=== PATIENT | male | born 1960 | race American Indian/Alaskan Native ===

== ENCOUNTER 2018-08-25 18:13 | Inpatient (IN) | payer OTHER ==
--- NOTE | 2018-08-25 18:59 | C.PDOC ---
History Of Present Illness 57 year old male presents to ED requesting heroin detox. Patient states that his last use was 3 hours ago today. Patient has no other physical complaints and denies alcohol abuse. Patient denies suicidal and homicidal ideation. Chief Complaint (Nursing): Substance Abuse History Per: Patient History/Exam Limitations: no limitations Onset/Duration Of Symptoms: Other (requesting detox) Suicide/Self Injury Attempted (Context): None Modifying Factor(s): Other (heroin) Associated Symptoms: denies: Suicidal Thoughts, Suicidal Plan Past Medical History Reviewed: Historical Data, Nursing Documentation, Vital Signs Vital Signs: Last Vital Signs Temp 99.5 F 08/25/18 18:25 Pulse 92 H 08/25/18 18:25 Resp 18 08/25/18 18:25 BP 144/84 08/25/18 18:25 Pulse Ox 98 08/25/18 18:25 - Medical History PMH: Rheumatoid Arthritis Surgical History: No Surg Hx Family History: States: Unknown Family Hx - Social History Hx Alcohol Use: No Hx Substance Use: Yes - Immunization History Hx Tetanus Toxoid Vaccination: No Hx Influenza Vaccination: No Hx Pneumococcal Vaccination: No Review Of Systems Constitutional: Negative for: Fever, Chills, Weakness Cardiovascular: Negative for: Chest Pain Respiratory: Negative for: Cough, Shortness of Breath Gastrointestinal: Negative for: Nausea, Vomiting, Abdominal Pain, Diarrhea Skin: Negative for: Rash Neurological: Negative for: Weakness, Numbness, Headache, Dizziness Psych: Negative for: Suicidal ideation, Other (homicidal ideation) Physical Exam - Physical Exam Appears: Well, Non-toxic, No Acute Distress Skin: Normal Color, Warm, Dry Head: Atraumatic, Normacephalic Neck: Normal ROM, Supple Chest: Symmetrical, No Deformity Cardiovascular: Rhythm Regular, No Murmur Respiratory: No Accessory Muscle Use, No Rales, No Rhonchi, No Wheezing Gastrointestinal/Abdominal: Soft, No Tenderness Extremity: Capillary Refill (<2 seconds) Neurological/Psych: Oriented x3, Normal Speech, Normal Cognition ED Course And Treatment - Laboratory Results Result Diagrams: 08/25/18 19:39 08/25/18 19:39 O2 Sat by Pulse Oximetry: 98 (in RA) Progress Note: Labs ordered with drug screen and UA for patient. 2028:Patient medically cleared. Patient to be placed in detox observation under . Disposition Discussed With : Isis Hernandez Doctor Will See Patient In The: Hospital Counseled Patient/Family Regarding: Diagnosis - Disposition Disposition: HOSPITALIZED Disposition Time: 20:31 Condition: STABLE Forms: [facility] (Lithuanian) - POA Present On Arrival: None - Clinical Impression Clinical Impression: Drug abuse - Scribe Statement The provider has reviewed the documentation as recorded by the Scribe (Ibis Leigh) All medical record entries made by the Scribe were at my direction and personally dictated by me. I have reviewed the chart and agree that the record accurately reflects my personal performance of the history, physical exam, medical decision making, and the department course for this patient. I have also personally directed, reviewed, and agree with the discharge instructions and disposition.
[2018-08-25 19:43] LABS: BASO # 0.1 K/uL (0.0-0.2); BASO % 1.1 % (0.0-2.0); EOS # 0.1 K/uL (0.0-0.7); EOS % 0.7 % (0.0-4.0); LYMPH # 1.6 K/uL (1.0-4.3); LYMPH % 16.3 % (20.0-40.0); MEAN CELL VOLUME 91.1 fL (80.0-94.0); MEAN CORPUSCULAR HGB CONC 32.9 g/dL (33.0-37.0); MEAN PLATELET VOLUME 7.6 fL (7.2-11.7); MONO # 0.7 K/uL (0.0-0.8); MONO % 6.8 % (0.0-10.0); NEUT # 7.4 K/uL (1.8-7.0); NEUT % 75.1 % (50.0-75.0); RBC 4.34 Mil/uL (4.40-5.90); RED CELL DISTRIBUTION WIDTH 17.1 % (11.5-14.5); WHITE BLOOD COUNT 9.9 K/uL (4.8-10.8)
[2018-08-25 19:56] LABS: SQUAMOUS EPITHIAL < 1 /hpf (0-5); URINE BILIRUBIN NEGATIVE (NEGATIVE); URINE BLOOD NEGATIVE (NEGATIVE); URINE CLARITY Hazy (Clear); URINE COLOR Yellow (YELLOW); URINE GLUCOSE (UA) NORMAL (Normal); URINE LEUKOCYTE ESTERASE NEG Leu/uL (Negative); URINE PROTEIN NEGATIVE (NEGATIVE); URINE UROBILINOGEN NORMAL mg/dL (0.2-1.0)
[2018-08-25 19:59] LABS: ALB/GLOB RATIO 1.2 (1.0-2.1); ALT/SGPT 9 U/L (21-72); AST/SGOT 19 U/L (17-59); BLOOD UREA NITROGEN 4 mg/dL (9-20); CALCIUM 9.7 mg/dl (8.6-10.4); GFR NON-AFRICAN AMERICAN > 60
[2018-08-25 20:01] LABS: BARBITURATES, UR NEGATIVE (NEGATIVE); BENZODIAZEPINES, UR NEGATIVE (NEGATIVE); PHENCYCLIDINE, UR NEGATIVE (NEGATIVE)
[2018-08-25 20:06] LABS: OPIATES, UR POSITIVE (NEGATIVE)
--- NOTE | 2018-08-25 20:56 | PCM.BM ---
<NaJanell M - Last Filed: 08/25/18 20:55> Treatment Plan Problems - Problems identified on initial assessmt Hopelessness Date Initiated: 08/25/18 Time Initiated: 20:55 Assessment reference: NA Status: Active Treatment assets and liabiliti Patient Assests: ADL independent Patient Liabilities: substance abuse - Milieu Protocol Maintain good personal hygiene: daily Encourage regular showers, daily Remind patient to perform daily oral care, daily Assist patient to perform ADL's Conduct patient checks and document Observation sheet: Q15 minutes Maintain personal safety: every shift Educate patient to report safety concerns to staff, every shift Monitor environment for contraband/sharps Medication safety: Monitor for expected outcome, potential side effects: every shift, Assess barriers to learning: every shift, Assess readiness for medication education: every shift <Marisol Diaz - Last Filed: 08/27/18 16:08> Family Contact Family involvement: No known Family/SO - Goals for Treatment Patient goals for treatment: Complete detox and relocate to [place]. Discharge/Continuing Care - Education Needs Education Needs: Patient Medication, Patient Diagnosis/Disease Process, Patient Coping Skills, Patient Anger Management skills, Patient Placement options, Patient Community resources - Discharge Discharge Criteria: No longer exhibiting s/s of withdrawal, Reduction of target symptoms Discharge to:: With Family - Treatment Team Participation Patient/Family/SO Statement: 08/27/18 16:07 "When I get outta here, I'm moving to [place] to be with my family. I already have a plane ticket." Discussed with Family/SO: No Was Patient/Family/SO present at Treatment Team Meeting: Yes
[2018-08-26] MEDS ORDERED: Buprenorphine Hydrochloride 2 mg SL ONE ×2 (02:38→03:38)
--- NOTE | 2018-08-26 12:07 | CP.PCM.PCO ---
Physician Communication Note - Physician Communication Note Physician Communication Note: See above
--- NOTE | 2018-08-26 12:45 | PCM.PSYCH ---
Initial Psychiatric Evaluation - Initial Psychiatric Evaluation Type of Admission: Voluntary Legal Status: Capacity Chief Complaint (in patient's own words): "I'm sick" History of Present Illness and Precipitating Events: The patient started to withdraw and thus switched from observation status to inpatient status He is seen, chart reviewed and case discussed He is a poor historian due to feeling irate He is a 57 y/o AAM, , has 2 children, homeless but stays with niece at times, on disability He is here for opioid detox - using 8 bags intranasally. He has used for 40 years. He relapsed 2 months ago after 12 years clean. He says he came here from [place] about 3 years ago bc his family told him to leave them, and that's why he relapsed (?) He has had 5 detoxes and 2 rehabs. He was on low dose, 18 mg methadone one time but he stopped. He had ODs within 6 months (heroin and fentanyl) Uses MJ, cigarettes, takes ultram but prescribed. He reports depression and recent thoughts of dying. He has attempted suicide in the s. He is also anxious, very irate, garcia, pessimistic. Wants to go back to [place] after detox Medical; He has RA and severe pain, which heroin helped. No family psych hx Current Medications: Active Medications Generic Name Dose Route Start Last Admin Trade Name Freq PRN Reason Stop Dose Admin Clonidine HCl 0.1 mg 08/26/18 02:11 Catapres PO Q6 PRN s/sx of withdrawal cows=5 Clonidine HCl 0.1 mg 08/26/18 14:00 Catapres PO TID [place] Gabapentin 100 mg 08/26/18 14:00 Neurontin PO TID [place] Hydroxyzine HCl 25 mg 08/26/18 02:11 Atarax PO Q6 PRN Anxiety Ibuprofen 600 mg 08/26/18 02:12 08/26/18 12:13 Motrin Tab PO 600 mg Q6 PRN Administration Pain, moderate (4-7) Mirtazapine 15 mg 08/26/18 22:00 Remeron PO HS [place] Nicotine 1 patch 08/26/18 10:45 08/26/18 10:59 Nicoderm Cq TD 1 patch DAILY [place] Administration Pneumococcal Polyvalent Vaccine 0.5 ml 08/28/18 10:00 Pneumovax 23 Vaccine IM 08/28/18 10:01 .ONCE ONE Past Psychiatric History - Past Psychiatric History Previous Treatment History: Intensive Outpatient Pertinent Medical Hx (Current Medical&Sleep Prob, Allergies): Allergies Allergy/AdvReac Type Severity Reaction Status Date / Time No Known Allergies Allergy Unverified 08/25/18 18:28 Review of Systems - Psychiatric Psychiatric: Abnormal Sleep Pattern, Anhedonia, Anxiety, Change in Appetite, Depression, Difficulty Concentrating, Irritability, Mood Swings, Suicidal Ideation (no plan or urge). absent: Homicidal Ideation Mental Status Examination - Personal Presentation Personal Presentation: Looks older than stated age - Affect Affect: Constricted, Other (irate) - Motor Activity Motor Activity: Other (fidgety) - Reliability in Providing Information Reliability in Providing Information: Fair - Speech Speech: Organized - Mood Mood: Depressed, Anxious - Formal Thought Process Formal Thought Process: No Impairment - Cognitive Functions Orientation: Person, Place, Situation, Time Sensorium: Alert Attention/Concentration: Attentive Estimate of Intelligence: Average Memory: Recent intact, as evidence by: Ability to recall events of the day, Remote intact, as evidenced by: Ability to recall historical events - Risk Risk: Withdrawal, Diminished functioning - Strength & Assets Inventory Strength & Assets Inventory: Life experience - Limitations Limitations: Other DSM 5 DX - DSM 5 DSM 5 Diagnosis: Opioid withdrawal Opioid use d/o - severe Cannabis use d/o - severe Tobacco use d/o - severe Depressive d/o - unspecified Personality d/o - unspecified - Recommended/Plan of Treatment Treatment Recommendations and Plan of Treatment: Taper with subutex Remeron for depression Gabapentin for augmentation As needed medications All risks, benefits and alternatives of the meds discussed, and the pt agreed and understood. Attend groups and activities Supportive therapy and psychoeducation [place] for abstinence CBT for relapse prevention Encourage MAT Refer to rehab or IOP, and self-help groups Teach healthy lifestyle methods, i.e. diet, exercise, meditation Smoking cessation with [place] Nicotine patch if needed 34 min Projected ELOS: 4-5 days Prognosis: good - Smoking Cessation Smoking Cessation Initiated: Yes
--- NOTE | 2018-08-27 10:02 | PCM.PYCHPN ---
Psychiatric Progress Note - Psychiatric Progress Note Patient seen today, length of contact: 16 min Patient Chief Complaint: "Better now" Problems Identified/Issues Discussed: The pt is seen, chart reviewed, case is discussed with staff. The pt is compliant with medications and reports no side-effects. Symptoms are improving but needs more time to stabilize and to avoid relapse. Much calmer today Pt attends groups and activities. Support given, psycho-education provided. After care discussed. Still wants to go out of state but more lenient now Medication Change: Yes (detox changes daily) Medical Record Reviewed: Yes Mental Status Examination - Cognitive Function Orientation: Person, Place, Situation, Time Memory: Intact Attention: WNL Concentration: WNL Association: WNL Fund of Knowledge: WNL - Mood Mood: Depressed, Anxious - Affect Affect: Constricted - Speech Speech: Appropriate - Formal Thought Process Formal Thought Process: No Impairment - Suicidal Ideation Suicidal Ideation: No - Homicidal Ideation Homicidal Ideation: No Goal/Treatment Plan - Goal/Treatment Plan Need for Continued Stay: Discharge may exacerbated symptoms, Severe functional impairment Progress Toward Problem(s) and Goals/Treatment Plan: Taper withsubutex Remeron for depression Gabapentin for augmentation As needed medications All risks, benefits and alternatives of the meds discussed, and the pt agreed and understood. Attend groups and activities Supportive therapy and psychoeducation [place] for abstinence CBT for relapse prevention Encourage MAT Refer to rehab or IOP, and self-help groups Teach healthy lifestyle methods, i.e. diet, exercise, meditation Smoking cessation with [place] Nicotine patch if needed
[2018-08-27] MEDS: Buprenorphine Hydrochloride 2 mg SL SCH (10:19)
[2018-08-27] MEDS ORDERED: Buprenorphine Hydrochloride 8 mg SL ONE (18:00)
[2018-08-28] MEDS ORDERED: Pneumococcal 23-Valent Vaccine IM ONE (10:00)
[2018-08-28] MEDS: Buprenorphine Hydrochloride 2 mg SL SCH (10:08)
--- NOTE | 2018-08-28 23:09 | PCM.PYCHPN ---
Psychiatric Progress Note - Psychiatric Progress Note Patient seen today, length of contact: 15 minutes Patient Chief Complaint: I am feeling better with the treatment. Problems Identified/Issues Discussed: Patient seen, chart reviewed, case discussed with the staff. Issues related to illness and treatment were discussed with the patient and staff. Reported compliant with treatment with no adverse effects. Tolerating treatment very well. Patient reported feeling better. Patient still has some mild withdrawal symptoms. Mood reported as anxious. Affect appropriate. Aftercare discussed with the patient. Patient denied any delusions, auditory or visual hallucinations, no suicidal ideations or homicidal ideations at the time of evaluation. Medical Problems: Rheumatoid arthritis Diagnostic Results: Reviewed DSM 5 Symptoms Update: Some improvement with treatment. Medication Change: No Medical Record Reviewed: Yes Mental Status Examination - Cognitive Function Orientation: Person, Place, Situation, Time Memory: Intact Attention: WNL Concentration: WNL Association: WN Fund of Knowledge: [facility] Decription of patient's judgement and insights: Fair - Mood Mood: Anxious - Affect Affect: Other (Appropriate) - Speech Speech: Appropriate - Formal Thought Process Formal Thought Process: No Impairment Psychotic Thoughts and Behaviors: None - Suicidal Ideation Suicidal Ideation: No - Homicidal Ideation Homicidal Ideation: No Goal/Treatment Plan - Goal/Treatment Plan Need for Continued Stay: Remain at risks for inpatient hospitalization, Discharge may exacerbated symptoms, Severe functional impairment Progress Toward Problem(s) and Goals/Treatment Plan: Patient education. Supportive therapy. CBT for relapse prevention. [facility] for abstinence. Continue treatment as before. Patient wants to go to home and no follow-up care after discharge from the hospital. Estimated Date of D/C: 08/29/18 - Smoking Cessation Smoking Cessation Initiated: Yes
[2018-08-29 05:50] VITALS: RESP 20
[2018-08-29] MEDS: Buprenorphine Hydrochloride 2 mg SL SCH (09:07)
[2018-08-29 09:30] VITALS: BP 127/81; PULSE 86; TEMP 98.2; O2SAT 100
--- NOTE | 2018-08-29 20:21 | PCM.PYCHDC ---
Mental Status Examination - Mental Status Examination Orientation: Person, Place, Situation, Time Memory: Intact Mood: Neutral Affect: Other (Appropriate) Speech: Appropriate Attention: WNL Concentration: WNL Association: WNL Fund of Knowledge: WNL Formal Thought Process: No Impairment Description of patient's judgement and insight: Fair Psychotic Thoughts and Behaviors: None Suicidal Ideation: No Current Homicidal Ideation?: No Discharge Summary - Discharge Note Reason for Hospitalization: Opioid withdrawal Opioid use d/o - severe Cannabis use d/o - severe Tobacco use d/o - severe Depressive d/o - unspecified Personality d/o - unspecified Laboratory Data: Reviewed Consultations:: List each consultation separately and include: 1. Reason for request. 2. Findings. 3. Follow-up Summary of Hospital Course include:: 1. Description of specific treatment plan utilized for patients during their course of treatmen. 2. Summarize the time- course for resolution of acute symptoms and/or regressed behaviors. 3. Describe issues identified and worked on during hospitalization. 4. Describe medication utilized. 5. Describe medical problems identified and treated. 6. Reassessment of suicide risk Summary of Hospital Course: he patient started to withdraw and thus switched from observation status to inpatient status He is seen, chart reviewed and case discussed He is a poor historian due to feeling irate He is a 57 y/o AAM, , has 2 children, homeless but stays with niece at times, on disability He is here for opioid detox - using 8 bags intranasally. He has used for 40 years. He relapsed 2 months ago after 12 years clean. He says he came here from [place] about 3 years ago bc his family told him to leave them, and that's why he relapsed (?) He has had 5 detoxes and 2 rehabs. He was on low dose, 18 mg methadone one time but he stopped. He had ODs within 6 months (heroin and fentanyl) Uses MJ, cigarettes, takes ultram but prescribed. He reports depression and recent thoughts of dying. He has attempted suicide in the 90's. He is also anxious, very irate, garcia, pessimistic. Wants to go back to [place] after detox Medical; He has RA and severe pain, which heroin helped. No family psych hx During his stay in the hospital patient was treated with buprenorphine for opioid withdrawal symptoms and other PRN medications. He was also treated with antidepressant. Patient was also attending groups and other activities on the unit. With above treatment patient started feeling better. Today patient had no withdrawal symptoms and was ready for discharge from the hospital. At the time of evaluation and discharge, patient was awake, alert and oriented x3, had no delusions, no auditory or visual hallucinations, no suicidal ideations or homicidal ideations. Patient was discharged in a stable condition. - Final Diagnosis (DSM 5) Condition upon Discharge: STABLE Disposition: HOME/ ROUTINE Follow-up Treatment Plan: Patient wants to go to home and no follow-up care after discharge from the hospital. Prescriptions/Medication Reconciliation: Gabapentin [Neurontin] 100 mg PO TID #90 cap Mirtazapine [Remeron] 15 mg PO HS #30 tab - Smoking Cessation Smoking Cessation Medication prescribed: Yes - Antipsychotic Medications Pt discharged on 2 or more routine antipsychotic medications: No
== END 2018-08-29 10:45 | disposition home or self-care (01) | DRG 745 ==
LOC: C.ER 18:13 → C.7D 20:32 → OBSVTOIN 08-26 09:25
PROVIDERS: ADMIT Psychiatry & Neurology Psychiatry; ATTEND Psychiatry & Neurology Psychiatry
PROC: GZHZZZZ Group Psychotherapy (ICD-10-PCS; principal; 2018-08-26)
PROC: GZ56ZZZ Individual Psychotherapy, Supportive (ICD-10-PCS; 2018-08-26)
DX: F11.23 Opioid dependence with withdrawal (principal); F12.90 Cannabis use, unspecified, uncomplicated; F32.9 Major depressive disorder, single episode, unspecified; M06.9 Rheumatoid arthritis, unspecified; Z72.0 Tobacco use